=== PATIENT | female | born 1995 | race Caucasian/White ===

== ENCOUNTER 2021-01-20 13:34 | Emergency (ER) | payer BC, SELFPAY ==
[2021-01-20 14:29] VITALS: BP 155/74; PULSE 98; RESP 20; TEMP 36.7; O2SAT 100
[2021-01-20 16:39] VITALS: BP 137/95; PULSE 95; RESP 15; O2SAT 99
[2021-01-20 17:53] VITALS: BP 134/86; PULSE 78; RESP 17; O2SAT 100
[2021-01-20 18:33] LABS: Beta HCG Quantitative < 2.39 mIU/ML
--- NOTE | 2021-01-20 18:38 | ED.FEMALEGU ---
HPI - Female Genitourinary General Chief complaint: ANALYTICAL CHEMIST Stated complaint: positive preg test, bleeding Time Seen by Provider: 01/20/21 17:06 Source: patient Mode of arrival: ambulatory Limitations: no limitations History of Present Illness HPI Narrative: Patient is a 25-year-old female who presents reporting vaginal bleeding. She reports 2 positive and 2 negative test over the past week. She reports last menstrual period is 12/05/2020. She reports light vaginal bleeding starting today, denies cramping or other complaints. Related Data Allergies Allergy/AdvReac Type Severity Reaction Status Date / Time No Known Allergies Allergy Verified 01/20/21 16:41 Review of Systems Review of Systems: Narrative: CONSTITUTIONAL: Denies fever, chills, or sweats. EYES: Denies visual changes, redness, or discharge. ENT: Denies rhinorrhea, congestion, sore throat, or otalgia. CARDIOVASCULAR: Denies chest pain, palpitations, or edema. RESPIRATORY: Denies cough or dyspnea. GASTROINTESTINAL: Denies abdominal pain, nausea, vomiting, or diarrhea. GENITOURINARY: Reports vaginal bleeding, SKIN: Denies rash or itching. MUSCULOSKELETAL: Denies back pain, joint pain, or myalgia. NEUROLOGIC: Denies headache, numbness, dizziness, or weakness. PSYCHIATRIC: Denies anxiety or depression. [facility] Social History Social History (Updated 01/20/21 @ 18:44 by ARI HernandezP) Smoking status: Never smoker Alcohol intake: never Substance use: never Living arrangements: with family Comments At the time of signature, I have reviewed and agree with nursing past medical, surgical, social, and family history unless otherwise noted. Please see nursing chart for further information. There is no relevant family history pertinent to the presenting complaint. Exam Narrative: Exam Narrative: GENERAL: Well-appearing, well-nourished, and in no acute distress. HEAD: Normocephalic, atraumatic. EYES: EOMI. No redness or drainage. Conjunctiva are normal. ENT: Mucous membranes pink and moist. CHEST: No respiratory distress. HEART: Regular rate and rhythm. GI: Soft, nontender without rebound, or guarding. : Exam deferred by patient EXTREMITIES: Normal range of motion. No edema. SKIN: Warm, dry, no rash. NEURO: No focal deficits. Alert and oriented x3. Gait steady. PSYCH: Normal affect. No signs of depression or anxiety. Course Vital Signs Vital signs: Vital Signs Temperature 36.7 C 01/20/21 14:29 Pulse Rate 98 01/20/21 14:29 Respiratory Rate 20 01/20/21 14:29 Blood Pressure 155/74 H 01/20/21 14:29 Pulse Oximetry 100 01/20/21 14:29 Temperature 36.7 C 01/20/21 14:29 Pulse Rate 100 01/20/21 18:54 Respiratory Rate 14 01/20/21 18:54 Blood Pressure 138/78 01/20/21 18:54 Pulse Oximetry 98 01/20/21 18:54 Reviewed-patient is informed that they may have pre-hypertension or hypertension based on a blood pressure reading. I recommend the patient call the primary care provider listed on their discharge instructions or a physician of their choice this week to arrange follow-up for further evaluation of possible pre-hypertension or hypertension. MDM - Female Genitourinary MDM Narrative Medical decision making narrative: Discussed with patient that beta quant as well as [id number]-[id number] test are negative. Referred patient to [facility]. Patient agrees with plan of care. Patient is stable for discharge home with outpatient follow-up as needed. Differential Diagnosis Differential diagnosis: Likely dysmenorrhea and other (, miscarriage) Lab Data Labs: Lab Results 01/20/21 Range/Units 18:00 Beta HCG, Quant < 2.39 mIU/ML UCG Bedside Result Negative Reference Range: Negative Critical Care Time Critical Care Time Critical Care Time: No Discharge Plan Discharge Clinical Impression: Encounter for test with
[2021-01-20 18:54] VITALS: BP 138/78; PULSE 100; RESP 14; O2SAT 98
== END 2021-01-20 18:55 | disposition home or self-care (01) ==
PROVIDERS: Emergency Provider Nurse Practitioner
DX: N93.9 Abnormal uterine and vaginal bleeding, unspecified (principal); R03.0 Elevated blood-pressure reading, without diagnosis of hypertension
CPT/HCPCS: 36415; 81025; 84702; 99283

== ENCOUNTER 2021-07-30 13:29 | Emergency (ER) | payer BC, SELFPAY ==
[2021-07-30 13:51] VITALS: BP 177/108; PULSE 88; RESP 16; TEMP 36.7; O2SAT 99
[2021-07-30 16:54] VITALS: BP 153/94; PULSE 66; RESP 16; O2SAT 100
--- NOTE | 2021-07-30 18:04 | ED.GENADULT ---
HPI - General Adult General Chief complaint: Unspecified Stated complaint: diff breathing Time Seen by Provider: 07/30/21 16:42 History of Present Illness HPI narrative: Patient is a 25-year-old female who presents ER with complaint of feeling like her throat is swelling shut on occasion. Reports has been having nearly every day over the last month. Sometimes will occur 3-4 times a day. He can last 30 minutes to 2 hours. She feels like she is breathing fast despite feeling her throat is swelling shut. She feels tingling in her fingers when this occurs. She does report it is occasionally worsened by stress. She has also woken up at night with palpitations. No fevers or chills or sweats. When it is occurring she is able to eat and drink. No acid reflux symptoms. Patient reports she has elected her Fitbit during these episodes and her heart rate is 60 bpm. Related Data Allergies Allergy/AdvReac Type Severity Reaction Status Date / Time No Known Allergies Allergy Verified 07/30/21 16:58 Review of Systems Review of Systems: All systems reviewed & are unremarkable except as noted in HPI and below Constitutional: Constitutional: Denies chills and Denies fever(s) ENT: Denies dysphagia, Denies hoarseness, Denies nasal congestion, Denies post nasal drip, Reports throat swelling and Denies tongue swelling Gastrointestinal: Gastrointestinal: Denies abdominal pain, Denies nausea and Denies vomiting Psychiatric: Psychiatric: Reports anxiety and Denies depression PMFSH Past Medical History Medical History (Updated 07/30/21 @ 18:21 by Samir Zarate MD) Healthy female adult Surgical History Surgical History (Updated 07/30/21 @ 18:15 by Samir Zarate MD) No history of previous surgery Social History Social History (Updated 01/20/21 @ 18:44 by DEMETRIO Hernandez) Smoking status: Never smoker Alcohol intake: never Substance use: never Exam Narrative: GENERAL: Well-appearing, well-nourished, and in no acute distress. HEAD: Normocephalic, atraumatic. EYES: PERRL and EOMI. ENT: Mucous membranes moist. Normal-appearing posterior oropharynx. CHEST: Clear to auscultation. No respiratory distress. HEART: Regular rate and rhythm. Normal peripheral pulses. EXTREMITIES: Normal range of motion. No edema. NEURO: Alert and oriented x3. PSYCH: Normal mood and affect. Course Course Emergency Course: Symptoms likely related to anxiety. Patient also could have some esophageal spasm. Will start on PPI and give some as needed anxiety medication. She does endorse some anxiety at home. Recommend she see her PCP. Vital Signs Vital signs: Vital Signs Temperature 98.0 F 07/30/21 13:51 Pulse Rate 88 07/30/21 13:51 Respiratory Rate 16 07/30/21 13:51 Blood Pressure 177/108 H 07/30/21 13:51 Pulse Oximetry 99 07/30/21 13:51 Temperature 98.0 F 07/30/21 13:51 Pulse Rate 66 07/30/21 16:54 Respiratory Rate 16 07/30/21 16:54 Blood Pressure 153/94 H 07/30/21 16:54 Pulse Oximetry 100 07/30/21 16:54 Medical Decision Making Vital Signs Vital Signs: Vital Signs Temperature 98.0 F 07/30/21 13:51 Pulse Rate 88 07/30/21 13:51 Respiratory Rate 16 07/30/21 13:51 Blood Pressure 177/108 H 07/30/21 13:51 Pulse Oximetry 99 07/30/21 13:51 Temperature 98.0 F 07/30/21 13:51 Pulse Rate 66 07/30/21 16:54 Respiratory Rate 16 07/30/21 16:54 Blood Pressure 153/94 H 07/30/21 16:54 Pulse Oximetry 100 07/30/21 16:54 Discharge Plan Discharge Clinical Impression: Anxiety Patient Disposition: Home, Self-Care Condition: Stable Instructions: Esophageal Spasm (ED), Anxiety (ED) Additional Instructions: Return the ER if you cannot keep down food or water, you have chest pain or shortness of breath, you lose consciousness, you have additional concerns. Take Xanax as needed for your symptoms. You should also take acid reflux medication in case you are
== END 2021-07-30 18:34 | disposition home or self-care (01) ==
PROVIDERS: Emergency Provider Emergency Medicine
DX: F41.9 Anxiety disorder, unspecified (principal)
CPT/HCPCS: 99283

== ENCOUNTER 2022-07-14 07:05 | Outpatient (CLI) | payer OTHER, SELFPAY ==
[2022-07-14 07:50] LABS: Basophils Absolute Auto 0.1 K/mm3 (0.0-0.1); Basophils Percent Auto 0.7 % (0.2-1.2); Eosinophils Absolute Auto 0.5 K/mm3 (0-0.3); Eosinophils Percent Auto 5.3 % (0-4.4); Hemoglobin 13.4 g/dL (12.0-15.0); Immature Granulocyte Absolute 0.03 K/mm3 (0.00-0.031); Immature Granulocyte Percent A 0.3 % (0-0.5); Lymphocytes Absolute Auto 2.87 K/mm3 (0.9-3.2); Lymphocytes Percent Auto 32.5 % (18.3-44.2); Mean Corpuscular HGB Conc 32.7 g/dl (32-36); Mean Corpuscular Hemoglobin 26.5 pg (26-34); Mean Corpuscular Volume 81.2 fl (80-100); Mean Platelet Volume 9.5 fl (7.4-10.4); Monocytes Absolute Auto 0.6 K/mm3 (0.1-0.6); Monocytes Percent Auto 6.9 % (2.6-8.5); Neutrophils Absolute Auto 4.8 K/mm3 (1.3-6.7); Neutrophils Percent Auto 54.3 % (45.5-73.1); Platelet Count Result 312 k/mm3 (150-375); Red Blood Count 5.05 M/mm3 (4.2-5.4); White Blood Count 8.8 K/mm3 (4.5-10.0)
[2022-07-14 08:01] LABS: Alanine Aminotransferase 18 U/L (6-35); Albumin Level 4.2 g/dL (3.5-5.1); Alkaline Phosphatase 53 U/L (38-126); Anion Gap 10 mmol/L (8-16); Aspartate Amino Transferase 22 U/L (14-36); Bilirubin,Total 0.4 mg/dL (0.2-1.3); Blood Urea Nitrogen 9 mg/dL (7-17); Calcium 8.5 mg/dL (8.4-10.2); Carbon Dioxide 31 mmol/L (22-30); Chloride 100 mmol/L (98-107); Cholesterol 198 mg/dL (0-200); Estimated Glomerular Filt Rate > 60; Glucose 89 mg/dL (65-110); HDL Direct 45 mg/dL; Potassium 3.5 mmol/L (3.4-5.0); Sodium 141 mmol/L (137-145); Triglycerides 121 mg/dL (<150)
[2022-07-14 08:12] LABS: LDL Cholesterol Direct 104 mg/dL
== END 2022-07-14 07:06 | disposition home or self-care (01) ==
LOC: ANHLAB 07:07
PROVIDERS: PCP Internal Medicine; Visit Provider Clinical Nurse Specialist
DX: I10 Essential (primary) hypertension (principal)
CPT/HCPCS: 36415; 80053; 80061; 84443; 85025

== ENCOUNTER → 2023-03-18 10:52 | Outpatient (CLI) | payer OTHER, SELFPAY ==
--- NOTE | ~2023-03-18 | XR_ITS ---
Clinical Indication: Cough PA and lateral views of the chest: Comparison: None Findings: The lungs are clear, without evidence of focal consolidation or pleural effusion. Cardiome diastinal silhouette is within normal limits. Bones and soft tissues are unremarkable. Impression: Normal chest. Reviewed, dictated and finalized at location . Impression: Normal chest.
== END ==
PROVIDERS: PCP Nurse Practitioner; Visit Provider Nurse Practitioner
DX: R05.9 Cough, unspecified (principal)
CPT/HCPCS: 71046

== ENCOUNTER 2024-02-15 10:57 | Outpatient (CLI) | payer BC, SELFPAY ==
[2024-02-15 13:22] LABS: Basophils Absolute Auto 0.1 K/mm3 (0.0-0.1); Basophils Percent Auto 0.7 % (0.2-1.2); Eosinophils Absolute Auto 0.4 K/mm3 (0-0.3); Eosinophils Percent Auto 4.2 % (0-4.4); Hematocrit 39.5 % (37.0-47.0); Hemoglobin 12.5 g/dL (12.0-15.0); Immature Granulocyte Absolute 0.02 K/mm3 (0.00-0.031); Immature Granulocyte Percent A 0.2 % (0-0.5); Lymphocytes Absolute Auto 2.83 K/mm3 (0.9-3.2); Mean Corpuscular HGB Conc 31.6 g/dl (32-36); Mean Corpuscular Hemoglobin 26.2 pg (26-34); Mean Corpuscular Volume 82.8 fl (80-100); Mean Platelet Volume 10.1 fl (7.4-10.4); Monocytes Absolute Auto 0.6 K/mm3 (0.1-0.6); Monocytes Percent Auto 7.2 % (2.6-8.5); Neutrophils Absolute Auto 4.9 K/mm3 (1.3-6.7); Neutrophils Percent Auto 55.7 % (45.5-73.1); Platelet Count Result 299 k/mm3 (150-375); Red Blood Count 4.77 M/mm3 (4.2-5.4); Red Cell Distribution Width 13.3 % (11.5-14.5); White Blood Count 8.9 K/mm3 (4.5-10.0)
[2024-02-15 14:05] LABS: Alanine Aminotransferase 18 U/L (6-35); Albumin Level 4.3 g/dL (3.5-5.1); Alkaline Phosphatase 50 U/L (38-126); Anion Gap 7 mmol/L (4-12); Aspartate Amino Transferase 38 U/L (14-36); Bilirubin,Total 0.6 mg/dL (0.2-1.3); Blood Urea Nitrogen 12 mg/dL (7-17); Calcium 8.9 mg/dL (8.4-10.2); Carbon Dioxide 30 mmol/L (22-30); Chloride 104 mmol/L (98-107); Cholesterol 186 mg/dL (0-200); Estimated Glomerular Filt Rate > 60; Glucose 87 mg/dL (65-110); HDL Direct 41 mg/dL; Potassium 4.3 mmol/L (3.4-5.0); Sodium 141 mmol/L (137-145); Triglycerides 106 mg/dL (<150)
[2024-02-15 14:17] LABS: LDL Cholesterol Direct 120 mg/dL
== END 2024-02-15 10:58 | disposition home or self-care (01) ==
LOC: ANHGOSHLAB 10:58
PROVIDERS: PCP Clinical Nurse Specialist; Visit Provider Clinical Nurse Specialist
DX: Z13.29 Encounter for screening for other suspected endocrine disorder (principal); I10 Essential (primary) hypertension
CPT/HCPCS: 36415; 80053; 80061; 85025